=== PATIENT | female | born 2000 | race Caucasian/White ===

== ENCOUNTER 2020-04-28 09:10 | Emergency (ER) | payer OTHER ==
[~2020-04-28] VITALS: Ht 160 cm; Wt 68.0 kg
--- OUTSIDE RECORDS SUMMARY | 2020-04-28 09:12 | XMS REPORT | Clinical Summary ---
Author Author [facility] Organization [facility] Address Unknown Phone Unavailable Care Team Providers Care Clinical Laboratory Medical Director Name Role Phone [facility] PCP Allergies Comments Active Allergy Reactions Severity Noted Date Metformin Diarrhea 09/21/2019 Medications End Date Status Medication Sig Dispensed Refills Start Date Active no122/iron/folic Take 1 tablet 0 acid ( MULTI by mouth ORAL) daily. Active Problems Problem Noted Date demise, greater than 22 weeks, antepartum 11/2018 FARTUN 1 with ketoacidosis, controlled 09/22/2019 Electrolyte and fluid disorder 09/21/2019 Resolved Problems Problem Noted Date Resolved Date Diabetic acidosis without coma 09/21/2019 019 Encounters Care Team Description Date Type Specialty 10/23/2019 Clinical [facility] s Support You Webb MD 09/23/2019 Anesthesia Obstetrics and Gyne cology Event Itmiguel angel, Ramiro Gaspar II, MD Diabetic ketoacidosis without coma assoc iated with other specified diabetes mellitus (HCC) (Primary Dx); demise in gamez greater than 22 weeks gestation, antepartum 09/21/2019 [facility] Obstetrics and Gyne cology - Encounter 09/25/2019 09/21/2019 Travel after 04/28/2019 Social History Date Tobacco Use Types Packs/Day Years Used Current Some Day Smoker Smokeless Tobacco: Current User Comments: marijuana Drinks/Week oz/Week Comments Alcohol Use Not Currently Sex Assigned at Date Recorded Not on file Industry Job Start Date Occupation Not on file Not on file Not on file Travel End Travel History Travel Start No recent travel history available. Last Filed Vital Signs Reading Time Taken Comments Vital Sign 99/60 10/23/2019 1:39 PM [employer] Blood Pressure 78 10/23/2019 1:39 PM [employer] Pulse 37.1 C (98.7 F) 10/23/2019 1:39 PM [employer] Temperature 17 10/23/2019 1:39 PM [employer] Respiratory Rate 99% 09/22/2019 2:00 PM CDT Oxygen Saturation - - Inhaled Oxygen Concentration 64.9 kg (143 lb) 09/22/2019 5:30 PM CDT Weight 160 cm (5' 3") 09/22/2019 5:30 PM CDT Height 25.33 09/22/2019 5:30 PM CDT Body Mass Index Plan of Treatment Health Maintenance Due Date Last Done Comments DIABETIC RETINAL EYE EXAM 1998 DIABETIC FOOT EXAM 2008 URINE MICROALBUMIN 2008 CERVICAL CANCER SCREENING 2019 CHLAMYDIA SCREENING 06/17/2019 06/17/2018 INFLUENZA VACCINE 06/22/2020 Procedures Comments Procedure Name Priority Date/Time Associated Diag nosis POC GLUCOSE Routine 09/25/2019 12:46 PM [employer] POC GLUCOSE Routine 09/25/2019 7:48 AM [employer] ESTIMATED GFR Timed 09/25/2019 5:27 AM [employer] PROTHROMBIN TIME WITH INR Timed 09/25/2019 5:27 AM [employer] PHOSPHORUS LEVEL Timed 09/25/2019 5:27 AM [employer] PARTIAL THROMBOPLASTIN Timed 09/25/2019 TIME (PTT) 5:27 AM [employer] MAGNESIUM LEVEL Timed 09/25/2019 5:27 AM [employer] FIBRINOGEN Timed 09/25/2019 5:27 AM [employer] HC COMPLETE BLD COUNT Timed 09/25/2019 W/AUTO DIFF 5:27 AM [employer] BASIC METABOLIC PANEL Timed 09/25/2019 5:27 AM [employer] POC GLUCOSE Routine 09/24/2019 9:59 PM [employer] POC GLUCOSE Routine 09/24/2019 7:12 PM [employer] URINE EOSINOPHILS Routine 09/24/2019 6:37 PM [employer] PROTHROMBIN TIME WITH INR Timed 09/24/2019 4:17 PM [employer] PHOSPHORUS LEVEL Timed 09/24/2019 4:17 PM [employer] PARTIAL THROMBOPLASTIN Timed 09/24/2019 TIME (PTT) 4:17 PM [employer] MAGNESIUM LEVEL Timed 09/24/2019 4:17 PM [employer] FIBRINOGEN Timed 09/24/2019 4:17 PM [employer] HC COMPLETE BLD COUNT Timed 09/24/2019 W/AUTO DIFF 4:17 PM [employer] POC GLUCOSE Routine 09/24/2019 1:25 PM [employer] POC GLUCOSE Routine 09/24/2019 10:27 AM [employer] POC GLUCOSE Routine 09/24/2019 9:43 AM [employer] ARTERIAL BLOOD GAS Routine 09/24/2019 4:27 AM [employer] ESTIMATED GFR Timed 09/24/2019 4:15 AM [employer] BASIC METABOLIC PANEL Timed 09/24/2019 4:15 AM [employer] PROTHROMBIN TIME WITH INR Timed 09/24/2019 4:15 AM [employer] PHOSPHORUS LEVEL Timed 09/24/2019 4:15 AM [employer] PARTIAL THROMBOPLASTIN Timed 09/24/2019 TIME (PTT) 4:15 AM [employer] MAGNESIUM LEVEL Timed 09/24/2019 4:15 AM [employer] FIBRINOGEN Timed 09/24/2019 4:15 AM [employer] HC COMPLETE BLD COUNT Timed 09/24/2019 W/AUTO DIFF 4:15 AM [employer] IONIZED CALCIUM Routine 09/24/2019 4:15 AM [employer] ESTIMATED GFR Timed 09/23/2019 9:15 PM CDT BETA HYDROXYBUTYRATE Timed 09/23/2019 9:15 PM CDT FIBRINOGEN Timed 09/23/2019 9:15 PM CDT PROTHROMBIN TIME WITH INR Timed 09/23/2019 9:15 PM CDT PHOSPHORUS LEVEL Timed 09/23/2019 9:15 PM CDT PARTIAL THROMBOPLASTIN Timed 09/23/2019 TIME (PTT) 9:15 PM CDT MAGNESIUM LEVEL Timed 09/23/2019 9:15 PM CDT IONIZED CALCIUM Timed 09/23/2019 9:15 PM CDT COMPREHENSIVE METABOLIC Timed 09/23/2019 PANEL 9:15 PM CDT HC COMPLETE BLD COUNT Timed 09/23/2019 W/AUTO DIFF 9:15 PM CDT POC GLUCOSE Routine 09/23/2019 5:45 PM CDT ANESTHESIA EPIDURAL BLOCK Routine 09/23/2019 3:31 PM CDT POC GLUCOSE Routine 09/23/2019 1:25 PM CDT RESPIRATORY PATHOGEN Routine 09/23/2019 PANEL 1:25 PM CDT SURGICAL PATHOLOGY Routine 09/23/2019 REQUEST 9:41 AM CDT ESTIMATED GFR Timed 09/23/2019 8:05 AM CDT CREATINE KINASE, TOTAL Routine 09/23/2019 (CPK) 8:05 AM CDT BETA HYDROXYBUTYRATE Timed 09/23/2019 8:05 AM CDT FIBRINOGEN Timed 09/23/2019 8:05 AM CDT PROTHROMBIN TIME WITH INR Timed 09/23/2019 8:05 AM CDT PHOSPHORUS LEVEL Timed 09/23/2019 8:05 AM CDT PARTIAL THROMBOPLASTIN Timed 09/23/2019 TIME (PTT) 8:05 AM CDT MAGNESIUM LEVEL Timed 09/23/2019 8:05 AM CDT IONIZED CALCIUM Timed 09/23/2019 8:05 AM CDT COMPREHENSIVE METABOLIC Timed 09/23/2019 PANEL 8:05 AM CDT HC COMPLETE BLD COUNT Timed 09/23/2019 W/AUTO DIFF 8:05 AM CDT GASTROINTESTINAL PANEL Routine 09/23/2019 7:15 AM CDT POC GLUCOSE Routine 09/23/2019 5:49 AM CDT ESTIMATED GFR Timed 09/23/2019 4:20 AM CDT VENOUS BLOOD GAS Routine 09/23/2019 4:20 AM CDT CBC HEMOGRAM Routine 09/23/2019 4:20 AM CDT BETA HYDROXYBUTYRATE Timed 09/23/2019 4:20 AM CDT FIBRINOGEN Timed 09/23/2019 4:20 AM CDT PROTHROMBIN TIME WITH INR Timed 09/23/2019 4:20 AM CDT PHOSPHORUS LEVEL Timed 09/23/2019 4:20 AM CDT PARTIAL THROMBOPLASTIN Timed 09/23/2019 TIME (PTT) 4:20 AM CDT MAGNESIUM LEVEL Timed 09/23/2019 4:20 AM CDT IONIZED CALCIUM Timed 09/23/2019 4:20 AM CDT COMPREHENSIVE METABOLIC Timed 09/23/2019 PANEL 4:20 AM CDT ARTERIAL BLOOD GAS Routine 09/23/2019 3:52 AM CDT POC GLUCOSE Routine 09/23/2019 1:32 AM CDT POC GLUCOSE Routine 09/22/2019 9:47 PM CDT POC GLUCOSE Routine 09/22/2019 6:19 PM CDT HSV TYPE 1/2 COMBINED AB, Routine 09/22/2019 IGM 6:07 PM CDT PARVOVIRUS B19 ANTIBODY, Routine 09/22/2019 IGG AND IGM 6:07 PM CDT LUPUS ANTICOAGULANT PANEL Routine 09/22/2019 5:35 PM CDT URINALYSIS SCREEN AND Routine 09/22/2019 MICROSCOPY, WITH REFLEX 5:15 PM CDT TO CULTURE URINE CULTURE Routine 09/22/2019 5:15 PM CDT GLUCOSE LEVEL Routine 09/22/2019 5:07 PM CDT HEPATITIS B SURFACE Routine 09/22/2019 ANTIGEN 5:07 PM CDT HIV 1, 2 ANTIBODY Routine 09/22/2019 5:07 PM CDT HC COMPLETE BLD COUNT Routine 09/22/2019 W/AUTO DIFF 5:07 PM CDT CYTOMEGALOVIRUS AB, IGG Routine 09/22/2019 5:07 PM CDT KLEIHAUER-BETKE Routine 09/22/2019 5:07 PM CDT PROTHROMBIN TIME WITH INR Routine 09/22/2019 4:35 PM CDT PARTIAL THROMBOPLASTIN Routine 09/22/2019 TIME (PTT) 4:35 PM CDT OSMOLALITY, SERUM Routine 09/22/2019 12:33 PM CDT POC GLUCOSE Routine 09/22/2019 11:19 AM CDT ARTERIAL BLOOD GAS Routine 09/22/2019 10:59 AM CDT BETA HYDROXYBUTYRATE Routine 09/22/2019 10:28 AM CDT ESTIMATED GFR Routine 09/22/2019 10:28 AM CDT COMPREHENSIVE METABOLIC Routine 09/22/2019 PANEL 10:28 AM CDT OSMOLALITY, URINE Routine 09/22/2019 8:52 AM CDT URINE DRUGS OF ABUSE Routine 09/22/2019 SCREEN 8:52 AM CDT POC GLUCOSE Routine 09/22/2019 7:22 AM CDT ARTERIAL BLOOD GAS Routine 09/22/2019 3:59 AM CDT D-DIMER Routine 09/22/2019 3:51 AM CDT FIBRINOGEN Routine 09/22/2019 3:51 AM CDT ESTIMATED GFR Routine 09/22/2019 3:51 AM CDT PROTHROMBIN TIME WITH INR Routine 09/22/2019 3:51 AM CDT PARTIAL THROMBOPLASTIN Routine 09/22/2019 TIME (PTT) 3:51 AM CDT PHOSPHORUS LEVEL Routine 09/22/2019 3:51 AM CDT IONIZED CALCIUM Routine 09/22/2019 3:51 AM CDT MAGNESIUM LEVEL Routine 09/22/2019 3:51 AM CDT COMPREHENSIVE METABOLIC Routine 09/22/2019 PANEL 3:51 AM CDT HC COMPLETE BLD COUNT Routine 09/22/2019 W/AUTO DIFF 3:51 AM CDT POC GLUCOSE Routine 09/22/2019 3:05 AM CDT POC GLUCOSE Routine 09/22/2019 1:56 AM CDT POC GLUCOSE Routine 09/22/2019 1:01 AM CDT BLOOD CULTURE, AEROBIC & Routine 09/22/2019 ANAEROBIC 12:35 AM CDT BLOOD CULTURE, AEROBIC & Routine 09/22/2019 ANAEROBIC 12:25 AM CDT POC GLUCOSE Routine 09/22/2019 12:05 AM CDT D-DIMER STAT 09/21/2019 11:25 PM CDT FIBRINOGEN STAT 09/21/2019 11:25 PM CDT DKA ELECTROLYTES AND Timed 09/21/2019 GLUCOSE TEST 11:25 PM CDT LACTIC ACID LEVEL, SEPSIS Timed 09/21/2019 - NOW AND REPEAT 2X EVERY 11:25 PM CDT 3 HOURS POC GLUCOSE Routine 09/21/2019 11:06 PM CDT POC GLUCOSE Routine 09/21/2019 10:19 PM CDT POC GLUCOSE Routine 09/21/2019 9:27 PM CDT DKA ELECTROLYTES AND Timed 09/21/2019 GLUCOSE TEST 9:21 PM CDT HEMOGLOBIN A1C STAT 09/21/2019 9:21 PM CDT LACTIC ACID LEVEL, SEPSIS Timed 09/21/2019 - NOW AND REPEAT 2X EVERY 9:21 PM CDT 3 HOURS POC GLUCOSE Routine 09/21/2019 8:13 PM CDT NV CRITICAL CARE, E/M Routine 09/21/2019 30-74 MINUTES 8:04 PM CDT ECG 12-LEAD STAT 09/21/2019 7:35 PM CDT BLOOD CULTURE, AEROBIC & Routine 09/21/2019 ANAEROBIC 7:33 PM CDT BLOOD CULTURE, AEROBIC & Routine 09/21/2019 ANAEROBIC 7:17 PM CDT US LIMITED STAT 09/21/2019 6:48 PM CDT ARTERIAL BLOOD GAS STAT 09/21/2019 6:22 PM CDT TYPE AND SCREEN Routine 09/21/2019 6:17 PM CDT ESTIMATED GFR STAT 09/21/2019 6:17 PM CDT PHOSPHORUS LEVEL STAT 09/21/2019 6:17 PM CDT MAGNESIUM LEVEL STAT 09/21/2019 6:17 PM CDT LACTIC ACID LEVEL, SEPSIS STAT 09/21/2019 - NOW AND REPEAT 2X EVERY 6:17 PM CDT 3 HOURS BETA HYDROXYBUTYRATE STAT 09/21/2019 6:17 PM CDT COMPREHENSIVE METABOLIC STAT 09/21/2019 PANEL 6:17 PM CDT URINALYSIS SCREEN AND STAT 09/21/2019 MICROSCOPY, WITH REFLEX 6:17 PM CDT TO CULTURE HC COMPLETE BLD COUNT STAT 09/21/2019 W/AUTO DIFF 6:17 PM CDT URINE CULTURE STAT 09/21/2019 6:17 PM CDT POC GLUCOSE Routine 09/21/2019 5:54 PM CDT after 04/28/2019 Results * POC glucose (09/25/2019 12:46 PM [employer]) Only the most recent of 24 results within the time period is included. Pathologist [facility] POC glucose 89 65 - 99 mg/dL [facility] Comment: [place] Meter ID: [id number] [place] Information Security Analyst: [facility] Specimen Performing Organization Address City/State/Zipcooh Ph one Number [facility] DEPARTMENT [address] [place] [address] PATHOLOGY AND GENOMIC MEDICINE [facility] [place] [address] [facility] [address] [place], [place] [address] [facility] * Estimated GFR (09/25/2019 5:27 AM [employer]) Only the most recent of 8 results within the time period is included. Pathologist [facility] Estimated GFR >=90 mL/min/1.73 m2 [facility] Comment: [place] Catergory Units [facility] HOSPITAL G1 >=90 Normal or high G2 60-89 Mildly decreased G3a 45-59 Mildly to moderately decreased G3b 30-44 Moderately to severely decreased G4 15-29 Severely decreased G5 <15 Kidney failure The eGFR was calculated using the Chronic Kidney Disease Epidemiology Collaboration (CKD-EPI) equation. Interpretation is based on recommendations of the National Kidney Foundation-Kidney Disease Outcomes Quality Initiative (NKF-KDOQI) published in 2014. Specimen Plasma specimen Performing Organization Address [facility] one Number [facility] [place] [address] PATHOLOGY AND [facility] MEDICINE [address] * Partial thromboplastin time, activated (09/25/2019 5:27 AM [employer]) Only the most recent of 8 results within the time period is included. PTT 29.3 23.0 - 36.0 sec [facility] Comment: [place] PTT therapeutic range for [place] unfractionated heparin is HOSPITAL 66.0-112.0 seconds which corresponds to Anti-Xa 0.3-0.7 U/mL. The reference range has changed starting 04/22/2010 @12:00pm Specimen Blood Performing Organization Address [facility] one Number [facility] [place] [address] PATHOLOGY AND [facility] MEDICINE [facility] [place] * Prothrombin time with INR (09/25/2019 5:27 AM [employer]) Only the most recent of 8 results within the time period is included. Prothrombin 11.3 (L) 11.5 - 14.5 sec [facility] time [facility] INR 0.9 [facility] Comment: [place] The International Normalized [place] Ratio (INR) is a therapeutic HOSPITAL monitoring tool for patients who are stable on oral anticoagulant therapy. An INR of 2.0-3.0 is suggested for deep vein thrombosis/pulmonary embolism. Specimen Blood Performing Organization Address [facility] one Number [place] [id number] PATHOLOGY AND GENOMIC MEDICINE [address] HOSPITAL * Fibrinogen (09/25/2019 5:27 AM CONTROLLER [employer]CHANIC) Only the most recent of 8 results within the time period is included. Fibrinogen 470.0 (H)Comment: The 200.0 - 450.0 mg/dL [facility] reference range has changed [place] starting 04/22/2010 @12:00pm [facility] Specimen Blood Performing Organization Address City/State/Zipcode Ph one Number [facility] DEPARTMENT [address] [place] [address] PATHOLOGY AND GENOMIC MEDICINE [facility] [address] [facility] [address] * CBC with platelet and differential (09/25/2019 5:27 AM CONTROLLER MECHANIC) Only the most recent of 8 results within the time period is included. Pathologist [facility] WBC 7.8 4.5 - 11.0 k/uL [facility] RBC 3.27 (L) 4.20 - 5.50 M/uL [facility] HGB 9.6 (L) 14.0 - 18.0 g/dL [facility] HCT 28.4 (L) 37.0 - 47.0 % [facility] MCV 86.9 82.0 - 100.0 fL [facility] MCH 29.4 27.0 - 34.0 pg [facility] MCHC 33.8 31.0 - 37.0 g/dL [facility] RDW - SD 42.0 37.0 - 55.0 fL [facility] MPV 10.4 8.8 - 13.2 fL [facility] Platelet count 155 150 - 400 K/uL [facility] Nucleated RBC 0.00 /100 WBC [facility] Neutrophils 56.4 39.0 - 69.0 % [facility] Lymphocytes 32.1 25.0 - 45.0 % [facility] Monocytes 8.8 0.0 - 10.0 % [facility] Eosinophils 1.4 0.0 - 5.0 % [facility] Basophils 0.3 0.0 - 1.0 % [facility] Immature 1.0Comment: "Immature 0.0 - 1.0 % [facility] granulocytes granulocytes" (promyelocytes, METHOD IST myelocytes, metamyelocytes) [facility] Specimen Blood Performing Organization Address [facility] [place] [address] PATHOLOGY AND GENOMIC MEDICINE [address] * Phosphorus level (09/25/2019 5:27 AM CONTROLLER MECHANIC) Only the most recent of 8 results within the time period is included. Phosphorus 4.1 2.5 - 4.8 mg/dL [facility] Specimen Plasma specimen Performing Organization Address [facility] [place] [address] PATHOLOGY AND GENOMIC MEDICINE [address] * Magnesium level (09/25/2019 5:27 AM CONTROLLER MECHANIC) Only the most recent of 8 results within the time period is included. Magnesium 1.6 (L) 1.7 - 2.4 mg/dL [facility] Specimen Plasma specimen Performing Organization Address [facility] [place] [address] PATHOLOGY AND GENOMIC MEDICINE [address] * Basic metabolic panel (09/25/2019 5:27 AM CONTROLLER MECHANIC) Only the most recent of 2 results within the time period is included. Sodium 140 135 - 148 mEq/L [facility] Potassium 3.1 (L) 3.5 - 5.0 mEq/L [facility] Chloride 107 99 - 109 mEq/L [facility] CO2 23 (L) 24 - 31 mEq/L [facility] Anion gap 10@ANIO 7 - 15 mEq/L [facility] BUN 8 8 - 24 mg/dL [facility] Creatinine 0.50 0.50 - 0.90 mg/dL [facility] Glucose 83 65 - 99 mg/dL [facility] Calcium 8.6 8.6 - 10.6 mg/dL [facility] Specimen Plasma specimen Performing Organization Address City/State/[facility] Ph one Number [facility] DEPARTMENT OF [address] [place] [address] PATHOLOGY AND GENOMIC MEDICINE [address] * Urine eosinophils (09/24/2019 6:37 PM [employer]ER [employer]CHANIC) Eosinophils, NONE [facility] urine [facility] Specimen Urine Performing Organization Address City/[facility] Ph one Number [facility] DEPARTMENT OF [address] [place] [address] PATHOLOGY AND [facility] MEDICINE [address] * Arterial blood gas (09/24/2019 4:27 AM CONTROLLER MECHANIC) Only the most recent of 5 results within the time period is included. Pathologist [facility] pH, arterial 7.44 7.35 - 7.45 Units [facility] pCO2, arterial 36 35 - 45 mmHg [facility] pO2, arterial 85 83 - 108 mmHg [facility] Bicarbonate, 23.6 21.0 - 28.0 mEq/L [facility] Base excess, 0.2 -0.2 - 0.3 mEq/L [facility] O2 saturation, 97 95 - 98 % [facility] FiO2 21.0 [facility] Total CO2 21 mEq/L [facility] O2 content 15.4 15.0 - 23.0 VOL % [facility] Specimen Blood Performing Organization Address City/[facility] Ph one Number [facility] DEPARTMENT OF [address] [place] [address] PATHOLOGY AND GENOMIC MEDICINE [address] * Ionized calcium (09/24/2019 4:15 AM CONTROLLER MECHANIC) Only the most recent of 5 results within the time period is included. pH 7.44 [facility] Ionized calcium 1.16 1.11 - 1.32 mmol/L [facility] Specimen Blood Performing Organization Address City/[facility] [place] [address] PATHOLOGY AND GENOMIC MEDICINE [address] * Beta hydroxybutyrate (09/23/2019 9:15 PM CDT) Only the most recent of 5 results within the time period is included. [facility] Beta 0.10 0.02 - 0.27 mmol/L [facility] Specimen Serum Performing Organization Address [facility] [place] [address] PATHOLOGY AND GENOMIC MEDICINE [address] * Comprehensive metabolic panel (09/23/2019 9:15 PM CDT) Only the most recent of 6 results within the time period is included. [facility] Sodium 136 135 - 148 mEq/L [facility] Potassium 4.1 3.5 - 5.0 mEq/L [facility] Chloride 103 99 - 109 mEq/L [facility] CO2 22 (L) 24 - 31 mEq/L [facility] Anion gap 11@ANIO 7 - 15 mEq/L [facility] BUN 9 8 - 24 mg/dL [facility] Creatinine 0.50 0.50 - 0.90 mg/dL [facility] Glucose 159 (H) 65 - 99 mg/dL [facility] Calcium 8.9 8.6 - 10.6 mg/dL [facility] Protein 5.2 (L) 6.3 - 8.2 g/dL [facility] Albumin 2.6 (L) 3.5 - 5.0 g/dL [facility] A/G ratio 1.00 0.70 - 3.80 [facility] Alkaline 133 (H) 30 - 115 U/L [facility] phosphatase [facility] AST 29 15 - 46 U/L [facility] ALT 8 (L) 10 - 55 U/L [facility] Total bilirubin <0.2 0.2 - 1.2 mg/dL [facility] Specimen Plasma specimen Performing Organization Address City[facility]State[facility] Ph one Number [facility] [address] [address] PATHOLOGY AND GENOMIC MEDICINE [address] [place], [place] [address] [facility] * Epidural Block (09/23/2019 3:31 PM CDT) Narrative Performed At You Webb MD 019 3:33 PM Epidural Block Date/Time: 09/23/2019 3:10 PM Performed by: You Webb M D Authorized by: You Webb MD Patient Location: OB Start Time: 09/23/2019 3:05 PM End Time: 09/23/2019 3:10 PM Anesthesiologist: You Webb MD Performed by: Anesthesiologist Preprocedure: patient identified, IV ch ecked, site and side verified, risks and benefits discussed, procedure verified, surgical consent completed, patient position confirmed, monitors and equipment checked, pre-op evaluation completed and coagula tion status reviewed Time Out Performed: 09/23/2019 3:04 PM Patient Position: Sitting Prep: ChloraPrep and patient draped Monitoring: Heart rate, continuous pu lse oximetry and blood pressure monitoring Approach: Midline Interspace: L4-5 Injection Technique: RUY saline Needle Type: Tuohy Needle Gauge: 17 Loss of resistance: 7 cm Catheter at Skin Depth: 12 cm Test Dose: Negative Number of Attempts: 2 Pump program started: pain pump Block Outcome: No apparent complicati ons, patient tolerated procedure well and patient comfortable Post-procedure: Patient returned to s upine position and sterile dressing applied Events: no paresthesia, no blood aspira vijay and no CSF Time: 09/23/2019 3:05 PM Pump program changed: pain pump Medications Administered Lidocaine 1.5% w/epINEPHrine PF (mg), 5 mL * Respiratory pathogen panel (09/23/2019 1:25 PM CDT) Respiratory Negative for all pathogens [facility] pathogen panel tested: [place] Negative for Adenovirus [facility] Negative for Coronavirus HKU1 Negative for Coronavirus NL63 Negative for Coronavirus 229E Negative for Coronavirus OC43 Negative for Human Metapneumovirus Negative for Rhinovirus/Enterovirus Negative for Influenza A Negative for Influenza A/H1 Negative for Influenza A/H3 Negative for Influenza A/H1-2009 Negative for Influenza B Negative for Parainfluenza Virus 1 Negative for Parainfluenza Virus 2 Negative for Parainfluenza Virus 3 Negative for Parainfluenza Virus 4 Negative for Respiratory Syncytial Virus Negative for Bordetella pertussis Negative for Chlamydophila pneumoniae Negative for Mycoplasma pneumoniae This real-time PCR assay detects the presence of nucleic acids (RNA or DNA) for the respiratory pathogens listed. A result of "Not-detected" does not exclude the possibility of the presence of one or more pathogens at concentrations less than the detectable limits of the assay. Comment: Specimen Information Specimen Source: Nares Specimen Site: Nares Specimen Nares - Nares Performing Organization Address City/[facility] Ph one Number [facility] [address] PATHOLOGY AND GENOMIC MEDICINE [address] * Surgical pathology request (09/23/2019 9:41 AM CDT) [facility] DEPARTMENT OF PATHOLOGY AND GENOMIC MEDICINE Surgical See link below for PDF Lab [facility] DEPAR TMENT pathology Report OF PATHOLOGY report AND GENOMIC MEDICINE Result status This is Final Report for [facility] DEPART ENT [id number] OF PATHOLOGY AND GENOMIC MEDICINE Specimen Performing Organization Address [facility] Ph one Number [facility] DEPARTMENT [address] [address] PATHOLOGY AND GENOMIC MEDICINE * Creatine kinase, total (CPK) (09/23/2019 8:05 AM CDT) [facility] Creatine kinase 14 (L) 35 - 200 U/L [facility] Specimen Plasma specimen Performing Organization Address City/[facility] Ph one Number [address] [address] PATHOLOGY AND GENOMIC MEDICINE [address] [address] [facility] * Gastrointestinal panel (09/23/2019 7:15 AM CDT) Gastrointestina Positive for Shiga toxin [facility] panel stx1/stx2 [facility] (A) Comment: Specimen Information Specimen Source: Stool Specimen Site: Rectal Gastrointestina Positive for Norovirus GI/GII [facility] l panel [facility] Negative for all other HOSPITAL pathogens tested: Negative for Salmonella Negative for Campylobacter Negative for Diarrheagenic E coli/Shigella Negative for Plesiomonas shigelloides Negative for Yersinia enterocolitica Negative for Vibrio species Negative for Clostridium difficile (Toxin A/B) Negative for Cryptosporidium Negative for Giardia lamblia Negative for Cyclospora cayeteanensis Negative for Entamoeba histolytica Negative for Adenovirus F 40/41 Negative for Astrovirus Negative for Rotavirus A Negative for Sapovirus Negative for E coli 0157 This real-time PCR assay detects the presence of nucleic acids (RNA or DNA) for the gastrointestinal pathogens listed. A result of "Not-detected" does not exclude the possibility of the presence of one or more pathogens at concentrations less than the detectable limits of the assay. (A) Specimen Stool - Rectal Performing Organization Address City/State/[facility] Ph one Number [facility] DEPARTMENT OF [address] [place] [address] PATHOLOGY AND GENOMIC MEDICINE [address] * CBC hemogram (09/23/2019 4:20 AM CDT) WBC 10.1 4.5 - 11.0 k/uL [facility] RBC 3.67 (L) 4.20 - 5.50 M/uL [facility] HGB 10.4 (L) 14.0 - 18.0 g/dL [facility] HCT 29.9 (L) 37.0 - 47.0 % [facility] MCV 81.5 (L) 82.0 - 100.0 fL [facility] MCH 28.3 27.0 - 34.0 pg [facility] MCHC 34.8 31.0 - 37.0 g/dL [facility] RDW - SD 39.9 37.0 - 55.0 fL [facility] MPV 10.0 8.8 - 13.2 fL [facility] Platelet count 166 150 - 400 K/uL [facility] Nucleated RBC 0.00 /100 WBC [facility] Specimen Blood Performing Organization Address City/[facility] [place] [address] PATHOLOGY AND GENOMIC MEDICINE [address] * Venous blood gas (09/23/2019 4:20 AM CDT) [facility] pH, venous 7.49 (H) 7.32 - 7.42 [facility] pCO2, venous 35 (L) 45 - 51 mmHg [facility] pO2, venous 70 (H) 25 - 40 mmHg [facility] Base excess, 3 (H) -2 - 2 mEq/L [facility] O2 saturation, 96 (H) 40 - 70 % [facility] Bicarbonate, 26.1 21.0 - 28.0 [facility] Specimen Blood Performing Organization Address [facility] [place] [address] PATHOLOGY AND [facility] MEDICINE [address] * HSV type 1/2 combined Ab, IgM (09/22/2019 6:07 PM CDT) [facility] HSV 1/2 0.42 <=0.89 IV [facility] combined Ab, Comment: IgM INTERPRETIVE INFORMATION: Herpes Simplex Virus Type 1 and/or 2 Antibodies, IgM by JOSÉ LUIS 0.89 IV or Less .......... Not Detected 0.90 - 1.09 IV ........... Indeterminate- Repeat testing in 10-14 days may be helpful. 1.10 IV or Greater ....... Detected-IgM antibody to HSV detected, which may indicate a current or recent infection. However, low levels of IgM antibodies may occasionally persist for more than 12 months post-infection. Performed by [facility], [address] [place] [address] [email or web address], Alejo Ch MD, Lab. Director Specimen Serum Performing Organization Address City/State/Zipcode Ph one Number [facility] [address] [place] [address] [facility] [address] [place] [address] * Parvovirus B19 antibody, IgG and IgM (09/22/2019 6:07 PM CDT) [facility] Parvovirus B19 5.19 (H) <=0.89 [facility] IgG Comment: INTERPRETIVE INFORMATION: Parvovirus B19 Antibody, IgG 0.89 IV or less .......... Negative - No significant level of detectable Parvovirus B19 IgG antibody. 0.90 - 1.10 IV ........... Equivocal - Repeat testing in 10-14 days may be helpful. 1.11 IV or greater ....... Positive - IgG antibody to Parvovirus B19 detected which may indicate a current or past infection. The best evidence for current infection is a significant change on two appropriately timed specimens, where both tests are done in the same laboratory at the same time. Parvovirus B19 0.15 <=0.89 IV [facility] IgM Comment: INTERPRETIVE INFORMATION: Parvovirus B19 Antibody, IgM 0.89 IV or less .......... Negative - No significant level of detectable Parvovirus B19 IgM antibody. 0.90 - 1.10 IV ........... Equivocal - Repeat testing in 10-14 days may be helpful. 1.11 IV or greater ........ Positive - IgM antibody to Parvovirus B19 detected which may indicate a current or recent infection. However, low levels of IgM antibodies may occasionally persist for more than 12 months post-infection. The best evidence for current infection is a significant change on two appropriately timed specimens, where both tests are done in the same laboratory at the same time. Appearance of an IgM antibody response normally occurs 7 to 14 days after the onset of disease. Testing immediately post-exposure is of no value without a later convalescent specimen. A residual IgM response may be distinguished from early IgM response to infection by testing sera from patients three to four weeks later for changing levels of specific IgM antibodies. Performed by [facility], [address] [place] [address] [email or web address], Alejo Ch MD, Lab. Director Specimen Serum Performing Organization Address [facility] Ph one Number [facility] [address] [place] [address] [facility] [address] [place] [address] * Lupus anticoagulant panel (09/22/2019 5:35 PM CDT) [facility] Prothrombin 13.4 11.5 - 14.5 sec [facility] INR 1.0 [facility] Comment: [place] The International Normalized HOSPITAL Ratio (INR) is a therapeutic monitoring tool for patients who are stable on oral anticoagulant therapy. An INR of 2.0-3.0 is suggested for deep vein thrombosis/pulmonary embolism. PTT 28.4 23.0 - 36.0 sec [facility] Comment: [place] PTT therapeutic range for HOSPITAL unfractionated heparin is 61.0-112.0 seconds which corresponds to Anti-Xa 0.3-0.7 U/ml. PTT lupus 29.7 27.0 - 38.0 sec [facility] anticoagulant Comment: [place] Lupus anticoagulant (LA) [facility] HOSPITAL consists of PT, PTT, PTT-LA, and DRVVT. If the PTT-LA is above the normal range, the hexagonal phospholipid will be performed. If the DRVVT is above the normal range, the DRVVC confirmatory test will be performed. A normal result for both the DRVVT and the PTT-LA means the patient is negative for lupus anticoagulant. The patient is considered positive for lupus anticoagulant if either the Ratio SCR/CONF or the hexagonal phospholipid is high (positive) on two occassions at least six weeks apart. Clinical confirmation is also required for diagnosis. DRVVT 34.2 29.0 - 46.0 sec [facility] Comment: [place] This test has been modified HOSPITAL from the manufacturers instructions. The performance characteristics were determined by [facility] in a manner consistent with CLIA requirements. This test has not been cleared or approved by the U.S. Food and Drug Administration. Specimen Blood Performing Organization Address City/State/[facility] Ph one Number [facility] DEPARTMENT OF [address] [place] [address] PATHOLOGY AND GENOMIC MEDICINE [facility] [address] [place] [address] [facility] * Urinalysis screen and microscopy, with reflex to culture (09/22/2019 5:15 PM CDT) Only the most recent of 2 results within the time period is included. Specimen site Clean catch [facility] Color, UA Straw YELLOW [facility] Appearance, UA Clear Clear [facility] Specific 1.022 1.005 - 1.030 [facility] gravity, [facility] pH, UA 6.0 5.0 - 8.0 [facility] Protein, UA Negative Negative [facility] Glucose, UA 3+ (A) Negative [facility] Ketones, UA 2+ (A) Negative [facility] Bilirubin, UA Negative Negative [facility] Blood, UA Negative Negative [facility] Nitrite, UA Negative NEGATIVE [facility] Urobilinogen, <2.0 <2.0 E.U./dL [facility] Leukocyte Negative Negative [facility] esterase, [facility] Epithelial 2 0 - 15 /HPF [facility] cells, UA [facility] WBC, UA 2 0 - 5 /Hpf [facility] RBC, UA 4 0 - 5 /HPF [facility] Bacteria, UA Few (A) None seen [facility] Yeast, UA None seen None Seen [facility] Yeast with None seen [facility] Specimen Urine Performing Organization Address City/State/Zipcode Ph one Number [facility] [place] [address] [facility] [address] [place] [address] PATHOLOGY AND GENOMIC MEDICINE [facility] [address] [facility] [address] [place], [place] [address] [facility] * Urine culture (09/22/2019 5:15 PM CDT) Only the most recent of 2 results within the time period is included. Urine culture SEE COMMENTComment: [facility] Bacteriuria screen negative. [facility] Specimen Performing Organization Address City/State/Zipcode Ph one Number [facility] [place] [address] PATHOLOGY AND GENOMIC MEDICINE [address] * Amy (09/22/2019 5:07 PM CDT) Pathologist [facility] Ilyaanny NEGComment: 09/22/19 ALL ADULT [place]ST[place] N CELLS SEEN/VM [facility] Specimen Blood Performing Organization Address City/State/Zipcode Ph one Number [facility] DEPARTMENT OF [address] [place] [address] PATHOLOGY AND GENOMIC MEDICINE [address] * HIV 1, 2 antibody (09/22/2019 5:07 PM CDT) Pathologist [facility] HIV 1, 2 Non-reactive Non-reactive [facility] antibody [facility] Specimen Blood Performing Organization Address City/[facility] Ph one Number [facility] DEPARTMENT OF [address] [place] [address] PATHOLOGY AND GENOMIC MEDICINE [address] * Hepatitis B surface antigen (09/22/2019 5:07 PM CDT) Pathologist [facility] Hepatitis B Non-reactive Non-reactive [facility] surface Ag [facility] Specimen Blood Performing Organization Address City/State/[facility] Ph one Number [facility] DEPARTMENT OF [address] [place] [address] PATHOLOGY AND GENOMIC MEDICINE [address] * Cytomegalovirus Ab, IgG (09/22/2019 5:07 PM CDT) Pathologist [facility] Cytomegalovirus NegativeComment: Negative; No Negative [facility] Ab, IgG CMV IgG antibodies were [facility] detected. HOSPITAL Specimen Serum Performing Organization Address City/State/Zipcode Ph one Number [facility] DEPARTMENT OF [address] [place] [address] PATHOLOGY AND GENOMIC MEDICINE [address] * Glucose level (09/22/2019 5:07 PM CDT) Glucose 188 (H) 65 - 99 mg/dL [facility] Specimen Plasma specimen Performing Organization Address City/[facility] Ph one Number [facility] [place] [address] PATHOLOGY AND GENOMIC MEDICINE [address] * Osmolality, serum (09/22/2019 12:33 PM CDT) Osmolality 285 275 - 301 mOsm/kg [facility] Specimen Blood Performing Organization Address City/[facility] Ph one Number [facility] DEPARTMENT [address] [address] PATHOLOGY AND GENOMIC MEDICINE [address] * Osmolality, urine (09/22/2019 8:52 AM CDT) Osmolality, 594 50 - 1,400 mOsm/kg [facility] urine [facility] Specimen Urine Performing Organization Address [facility] Ph one Number [facility] DEPARTMENT [address] [address] PATHOLOGY AND GENOMIC MEDICINE [address] * Urine drugs of abuse screen (09/22/2019 8:52 AM CDT) Amphetamine Negative [facility] screen, urine [facility] Barbiturate Negative [facility] screen, urine [facility] Benzodiazepine Negative [facility] screen, urine [facility] Cocaine screen, Negative [facility] urine [facility] Methadone Negative [facility] metabolite [place] (EDDP), urine [facility] Opiates screen, Negative [facility] urine [facility] Oxycodone Negative [facility] screen, urine [facility] Phencyclidine Negative [facility] screen, urine [facility] Tricyclic Negative [facility] screen, urine [facility] Cannabinoid Positive (A) [facility] screen, urine Comment: [facility] Drug screen minimum [place] concentration of detectability [facility] Amphetamines 1000 ng/mL Barbiturates 200 ng/mL Benzodiazepines 300 ng/mL Cocaine 300 ng/mL Methadone 300 ng/mL Opiates 300 ng/mL Oxycodone 300 ng/mL Phencyclidine 25 ng/mL Cannabinoids 50 ng/mL Tricyclics 1000 ng/mL Results are from screening tests and should only be used for medical evaluation. Drug testing for legal purposes requires definitive (or confirmatory) testing methods, which are available upon request. Contact the laboratory if definitive testing is required. Specimen Urine Performing Organization Address City/State/[facility] Ph one Number [facility] [place] [address] PATHOLOGY AND GENOMIC MEDICINE [facility] [place] [address] [place] [address] * D-dimer (09/22/2019 3:51 AM CDT) Only the most recent of 2 results within the time period is included. D-dimer 2.58 (H) 0.00 - 0.40 ug/mL [facility] Comment: FEU [place] When combined with low [place] clinical probability, D-dimer HOSPITAL results of less than 0.5 ug/ml FEU have a good negative predictive value in excluding PE or DVT. For D-dimer results greater than 0.5 ug/ml FEU further testing is indicated if PE or DVT is suspected clinically. Elevated D-dimer results have been reported in DVT, PE, and DIC cases and may indicate the presence of a clot. D-dimer results may be elevated due to old age, , inflammatory diseases, trauma, post-operative states, sepsis, and malignancies. Specimen Blood Performing Organization Address City/[facility] Ph one Number [facility] [place] [address] PATHOLOGY AND GENOMIC MEDICINE [facility] [place] [address] [place] [address] * Blood culture, aerobic & anaerobic (09/22/2019 12:35 AM CDT) Only the most recent of 4 results within the time period is included. Blood culture No growth after 5 days of [facility] isolate incubation. [facility] Comment: HOSPITAL Specimen Information Specimen Source: Blood Specimen Site: Antecubital, left Specimen Blood - Antecubital, left Performing Organization Address City/State/Zipcode Ph one Number [facility] DEPARTMENT OF [address] [place] [address] PATHOLOGY AND GENOMIC MEDICINE [facility] [place] [address] [place] [address] * Lactic acid level, SEPSIS - Now and repeat 2x every 3 hours (09/21/2019 11:25 PM CDT) Only the most recent of 3 results within the time period is included. Lactic acid 0.8 0.5 - 2.2 mmol/L [facility] Specimen Blood Performing Organization Address [facility] Ph one Number [facility] [place] [address] PATHOLOGY AND GENOMIC MEDICINE [address] * DKA electrolytes and glucose test (09/21/2019 11:25 PM CDT) Only the most recent of 2 results within the time period is included. Sodium, whole 134 (L) 135 - 148 mEq/L [facility] Potassium, 4.2 3.5 - 5.5 mEq/L [facility] blood [facility] Chloride, whole 115 (H) 96 - 109 mEq/L [facility] CO2 calculated, 7 (LL) 24 - 31 mEq/L [facility] whole blood Comment: [place] Final results called to and [place] read back by [facility] 09/21/2019 23:53 . wblp Anion gap, 12 5 - 20 mEq/L [facility] blood [facility] Glucose, whole 200 (H) 65 - 99 mg/dL [facility] blood [facility] Specimen Blood Performing Organization Address [facility] one Number [address] [address] PATHOLOGY AND GENOMIC MEDICINE [address] * Hemoglobin A1c (09/21/2019 9:21 PM CDT) Hemoglobin A1C 5.6 4.0 - 5.6 % [facility] Comment: [place] HbA1c cutoffs for diagnosing [place] diabetes: HOSPITAL 4.0% - 5.6% = normal 5.7% - 6.4% = increased risk for diabetes (prediabetes)9 >=6.5% = diabetes9 Goals for glycemic control (ADA 2016) < 7.0% Target for non adults with diabetes. More or less stringent targets may be appropriate for individual patients. <7.5% Target for Children and adolescents with type 1 diabetes. Specimen Blood Performing Organization Address City/[facility]/Zipcode [place] [address] [facility] [address] [place] [address] PATHOLOGY AND GENOMIC MEDICINE [facility] [place] [address] [facility] [address] [place], [place] [address] [facility] * CRITICAL CARE (09/21/2019 8:04 PM CDT) Narrative Performed At Mckenzie Wilson MD 09/21/2019 1 0:41 PM Critical Care Performed by: Mckenzie Wilson MD Authorized by: Mckenzie Wilson MD Critical care provider statement: Critical care time (minutes): 45 Critical care time was exclusive of: Separately billable procedures and treating other patients and teaching ti me Critical care was necessary to treat or prevent imminent or life-threatening deterioration of the f ollowing conditions: Dehydration, endocrine crisis, metabolic crisis and sepsis Critical care was time spent personal ly by me on the following activities: Ordering and performing t reatments and interventions, ordering and review of laboratory studi es, ordering and review of radiographic studies, pulse oximetry, r e-evaluation of patient's condition, discussions with consultants , evaluation of patient's response to treatment, examination of patient, o btaining history from patient or surrogate, review of old charts and dev elopment of treatment plan with patient or surrogate Arvind 'yes' if you are taking over cri tical care for this patient from another provider.: no * ECG 12 lead (09/21/2019 7:35 PM CDT) Ventricular 117 [facility] rate Atrial rate 117 [facility] NV interval 126 [facility] QRSD interval 82 [facility] QT interval 288 [facility] QTC interval 401 [facility] P axis 1 48 [facility] QRS axis 1 60 [facility] T wave axis 33 [facility] EKG impression Sinus tachycardia-Otherwise [facility] normal ECG-- Specimen Narrative Performed At This result has an attachment that is n ot available. Performing Organization Address City/[facility] Ph one Number [facility] MUSE [address] [place] [address] * US Limited (09/21/2019 6:48 PM CDT) Specimen Narrative Performed At EXAMINATION: US LIMITED [facility] CLINICAL HISTORY: confirm viability COMPARISON: None. IMPRESSION: Intrauterine demise. FINDINGS: 1.The estimated gestational age by comp osite ultrasound measurements is 34 weeks 1 day. 2.The estimated weight is 2320 gm . 3.There is no cardiac activity. 4.The presentation is breech. 5.The BUSHRA is 11.2 cm. 6.The placenta is posterior. 7.Maternal cervical length is not well seen. [id number] Procedure Note Hm Interface, Radiology Results Incoming - 09/21/2019 7:02 PM CDT EXAMINATION: US LIMITED CLINICAL HISTORY: confirm viability COMPARISON: None. IMPRESSION: Intrauterine demise. FINDINGS: 1.The estimated gestational age by compo site ultrasound measurements is 34 weeks 1 day. 2.The estimated weight is 2320 gm. 3.There is no cardiac activity. 4.The presentation is breech. 5.The BUSHRA is 11.2 cm. 6.The placenta is posterior. 7.Maternal cervical length is not well s een. [id number] Performing Organization Address [facility] Ph one Number [facility] [address] [place] [address] * Type and screen (09/21/2019 6:17 PM CDT) ABO grouping O [facility] Rh type POS [facility] Antibody screen NEG [facility] (gel) [facility] Specimen Blood Performing Organization Address City/[facility] Ph one Number [facility] DEPARTMENT OF [address] [place] [address] PATHOLOGY AND GENOMIC MEDICINE [address] [place], [place] [address] [facility] after 04/28/2019 Insurance Type Payer Benefit Subscriber ID Effective Phone Address Plan / Dates Group HMO VINICIUS GAUTAM xxxxxxxxxxx 2011-Amanda cruz [employer] HMO HMO [employer] xxxxxxxxx 2019- LALITHA ROD Present Advance Directives For more information, please contact: [phone] Patient Fe[employer] Winder Explanation Type Date Recorded Advance Directives, 09/21/2019 7:33 PM Living Will and Medical Power of [employer]
[2020-04-28] MEDS ORDERED: CIPROFLOXACIN 500 MG TAB PO STA (09:40)
[2020-04-28] MEDS ORDERED: BACITRACIN ZINC 15 GM OINT TOP STA (09:40)
[2020-04-28] MEDS ORDERED: TRIMETHOPRIM/SULFAMETHOXAZOLE 160-800 MG TAB PO STA (09:40)
[2020-04-28] MEDS ORDERED: TETANUS/DIPHTHERIA TOX ADULT 0.5 ML SYR IM ONE (09:45)
--- NOTE | 2020-04-28 09:47 | Emergency Department Note ---
History of Present Illnes History of Present Illness Chief Complaint: superficial laceration rgt buttock secondary hitting a stick while getting into [employer] History of Present Illness This is a 20 year old female. was doing well prior to this History limited by: condition of the patient (normal) Onset (how long ago): day(s) (1) Location: rgt buttock Quality: mild sharpness Radiation: non-radiation Severity: mild Duration (how long): day(s) (1) Timing of current episode: constant Progression: unchanged Chronicity: new Context: recent illness, recent surgery, recent immobilization, recent travel, trauma/injury, new medications, hx of DVT/PE, non-compliance w/ medications Relieving factors: none Exacerbating factors: none Associated symptoms: denies other symptoms Treatments prior to arrival: none Past Medical/Family History Physician Review I have reviewed the patient's past medical and family history. Any updates have been documented here. Past Medical History Recent Fever: No Clinical Suspicion of Infectio: No New/Unexplained Change in Ment: No Past Medical History: Diabetes Past Surgical History: None Social History Smoking Cessation: Never Smoker Counseling Performed: No Any Illegal Drug Use: No TB Exposure/Symptoms: No Physically hurt or threatened: No Family History Family history of heart diseas: No Other Any Pre-Existing Lines (PICC,: No Is patient up to date on immun: No Review of Systems Review of Systems Constitutional: no symptoms EENTM: no symptoms Cardiovascular: no symptoms Respiratory: no symptoms Gastrointestinal: no symptoms Genitourinary: no symptoms Musculoskeletal: no symptoms Neurological: no symptoms Psychological: no symptoms Endocrine: no symptoms Hematological/Lymphatic: no symptoms Review of other systems All other systems reviewed and negative. Physical Exam Related Data Allergies: Coded Allergies: No Known Allergies (Unverified , 04/28/20) Vital signs reviewed: Yes Physical Exam CONSTITUTIONAL Constitutional: well-developed, well-nourished HENT HENT: normocephalic, atraumatic, oropharynx clear/moist, nose normal HENT L/R: left ext ear normal, right ext ear normal EYES Eyes: PERRL, conjunctivae normal NECK Neck: ROM normal PULMONARY Pulmonary: effort normal, breath sounds normal CARDIOVASCULAR Cardiovascular: regular rhythm, heart sounds normal, capillary refill normal, normal rate GASTROINTESTINAL Abdominal: soft, nontender, bowel sounds normal GENITOURINARY Genitourinary: exam deferred SKIN Skin: warm, dry, erythema (5cm superficial laceration rgt buttock) MUSCULOSKELETAL Musculoskeletal: ROM normal NEUROLOGICAL Neurological: alert, oriented x 3, no gross motor or sensory deficits PSYCHOLOGICAL Psychological: mood/affect normal, judgement normal Procedures Procedures Procedure: laceration clean out with hydrogen peroxide, then bacitracin and steristrips placed on wound Critical Care Time Subsequent provider I assumed direction of critical care for this patient from another provider of my specialty. Assessment & Plan Assessment & Plan Final Impression: (1) Laceration Assessment & Plan cipro and bactrim. neosprin and dressing every 12 hours Depart Disposition: HOME, SELF-[facility] Meds Active Scripts Sulfamethoxazole/Trimethoprim (BACTRIM DS TABLET) 1 Each Tablet, 1 TAB PO Q12H, #20 TAB Prov:EPHRAIM BRENNAN 04/28/20 Ciprofloxacin Hcl (CIPRO) 500 Mg Tablet, 500 MG PO Q12H for 10 Days, #20 TAB Prov:EPHRAIM BRENNAN 04/28/20 Medications in the ED Ciprofloxacin 500 mg ONCE STAT PO ; Start 04/28/20 at 09:40; Stop 04/28/20 at 09:41; Status UNV Trimethoprim/ Sulfamethoxazole 1 ea ONCE STAT PO ; Start 04/28/20 at 09:40; Stop 04/28/20 at 09:41; Status UNV Bacitracin Zinc 1 gm ONCE STAT TOP ; Start 04/28/20 at 09:40; Stop 04/28/20 at 09:43; Status DC Tetanus/ Diphtheria Toxoids 0.5 ml ONCE ONCE IM ; Start 04/28/20 at 09:45; Stop 04/28/20 at 09:46 EPHRAIM BRENNAN Apr 28, 2020 09:47
[2020-04-28] MEDS ORDERED: CIPRO500 MG PO (09:57)
[2020-04-28] MEDS ORDERED: BACTRIM DS TAB1 EACH PO (09:57)
[2020-04-28] MEDS ORDERED: CIPROFLOXACIN 500 MG TAB ONE (10:21)
[2020-04-28] MEDS ORDERED: BACITRACIN ZINC 0.9GM TP ONE (10:21)
[2020-04-28] MEDS ORDERED: TETANUS/DIPHTHERIA TOX ADULT 0.5 ML SYR ONE (10:22)
[2020-05-04] MEDS ORDERED: ONDANSETRON HCL 4 MG ORAL DISINTEGRATING TAB ONE (03:55)
== END 2020-04-28 10:43 | disposition home or self-care (01) ==
LOC: FSED 09:10
DX: S31.811A Laceration without foreign body of right buttock, initial encounter (principal); W22.09XA Striking against other stationary object, initial encounter; Y93.11 Activity, swimming; Y92.828 Other wilderness area as the place of occurrence of the external cause; E11.9 Type 2 diabetes mellitus without complications; F17.210 Nicotine dependence, cigarettes, uncomplicated
CPT/HCPCS: 90471; 90714; 99283